=== PATIENT | female | born 1970 | race African-American/Black ===

== ENCOUNTER 2018-01-02 08:50 | Emergency (ER) | payer BC, MEDICAID ==
[~2018-01-02] VITALS: Ht 162.6 cm; Wt 60.0 kg
[~2018-01-02 08:50] MED LIST: FERR-63 PO; HYDR200T80 PO; HYDR2TAB4; IBUP100T36; OMEP10SU2; PRED10TA23; SULF1TAB48 PO; VIC PO
[2018-01-02] MEDS ORDERED: KETOROLAC 60MG/2ML VIAL IM ONE (10:30)
[2018-01-02] MEDS ORDERED: DIAZEPAM 5 MG TABLET PO ONE (10:30)
[2018-01-02 12:24] VITALS: BP 110/74
== END 2018-01-02 12:30 | disposition home or self-care (01) ==
LOC: ER 08:50
DX: S16.1XXA Strain of muscle, fascia and tendon at neck level, initial encounter (principal); M54.5 Low back pain; M54.12 Radiculopathy, cervical region; M32.9 Systemic lupus erythematosus, unspecified; F12.10 Cannabis abuse, uncomplicated; I10 Essential (primary) hypertension; V43.52XA Car driver injured in collision with other type car in traffic accident, initial encounter; Y93.89 Activity, other specified; Y92.488 Other paved roadways as the place of occurrence of the external cause
CPT/HCPCS: 72100; 72125; 81025; 99284; J1885

== ENCOUNTER 2024-07-16 19:13 | Emergency (ER) | payer MEDICARE, MEDICAID ==
[~2024-07-16] VITALS: Ht 157.5 cm; Wt 54.0 kg
[~2024-07-16 19:13] MED LIST changes: +HYDR-4009 MT; -HYDR2TAB4; -SULF1TAB48 PO; -VIC PO
[2024-07-16 19:26] VITALS: BP 145/88; PULSE 69; RESP 16; TEMP 37.1; O2SAT 100
[2024-07-16 20:15] LABS: BASOPHILS % 0.9 % (0.0-2.0); EOSINOPHILS % 0.7 % (0.0-5.0); HEMATOCRIT. 38.8 % (36.0-48.0); HEMOGLOBIN. 12.8 g/dL (12.0-16.0); LYMPHOCYTES % 31.1 % (20.0-50.0); MEAN CORPUSCULAR HEMOGLOBIN 29.7 pg (28.0-32.0); MEAN CORPUSCULAR HGB CONC 32.9 g/dL (31.0-37.0); MEAN CORPUSCULAR VOLUME 90.2 fL (81.0-99.0); MEAN PLATELET VOLUME 8.2 fl (7.4-10.4); MONOCYTES % 8.2 % (2.0-8.0); NEUTROPHILS % 59.1 % (40.0-76.0); PLATELET 334 x1000/uL (130-400); RED CELL DISTRIBUTION WIDTH 13.9 % (11.6-14.6)
[2024-07-16 20:17] LABS: CHLORIDE 103 mEq/L (98-107); POTASSIUM 3.8 mEq/L (3.5-5.1); SODIUM 138 mEq/L (136-145)
[2024-07-16 20:18] LABS: CARBON DIOXIDE 29 mEq/L (21-32)
[2024-07-16 20:19] LABS: CALCIUM 10.1 mg/dL (8.7-10.4)
[2024-07-16 20:23] LABS: CREATININE 0.7 mg/dL (0.6-1.0); GLUCOSE 98 mg/dL (70-105); UREA NITROGEN BLOOD 13 mg/dL (9-23)
[2024-07-16 20:41] LABS: TROPONIN I HIGH SENSITIVITY < 4 ng/L (3.0-34)
== END 2024-07-17 00:20 | disposition home or self-care (01) ==
LOC: ER 19:13
DX: I10 Essential (primary) hypertension (principal); F10.90 Alcohol use, unspecified, uncomplicated; F12.90 Cannabis use, unspecified, uncomplicated; Y90.9 Presence of alcohol in blood, level not specified
CPT/HCPCS: 36415; 71045; 80048; 84484; 85025; 93005; 99285